=== PATIENT | male | born 1955 | race Caucasian/White ===

== ENCOUNTER 2018-03-08 18:28 | Inpatient (IN) | payer OTHER ==
[~2018-03-08] VITALS: Ht 172.7 cm; Wt 73.8 kg
[2018-03-08 18:28] VITALS: BP 94/48
[~2018-03-08 18:28] MED LIST: AMLODIPINE BESYL5 M1 PO; ASPIRIN81 M2 PO; AUGMENTIN 875875 MG PO; BACLOFEN20 MG PO; CENTRUM SILVER1 EAC2 PO; DIAZEPAM 5 MG5 M1 PO; DIVALPROEX SOD500 M1 PO; GABAPENTIN 100100 MG PO; LIPITOR PO; LIPITOR40 MG PO; LISINOPRIL20 MG PO; NEURONTIN 300M300 M2 PO; OMEPRAZOLE 20 M20 MG PO; POTASSIUM20 PO; VALIUM5 MG PO; VITAMIN D31000 UNI2 PO; ZESTRIL40 MG PO; ZOLOFT100 MG PO; ZYPREXA 5 MG TAB5 M1 PO
[2018-03-08 19:11] LABS: ABSOLUTE NEUTROPHILS 8.2 thou/uL (1.4-8.2); BASOPHILS 0.4 % (0.0-2.0); EOSINOPHILS 3.4 % (0.0-3.0); HEMATOCRIT 44.2 % (42.0-52.0); HEMOGLOBIN 15.2 gm/dL (14.0-18.0); LYMPHOCYTES 14.4 % (24.0-44.0); MCH 30.9 pg (26.0-34.0); MCHC 34.3 g/dL (28.0-37.0); MCV 90.1 fL (80.0-100.0); MONOCYTES 7.7 % (1.0-8.0); PLATELET COUNT 201 thou/uL (150-400); POLYS 74.1 % (36.0-66.0); RBC 4.91 mil/uL (4.50-6.00); RDW 14.5 % (10.5-14.5); WBC 11.1 thou/uL (4.0-11.0)
[2018-03-08 19:15] LABS: CALCIUM 9.7 mg/dL (8.5-10.1); CREATININE 0.8 mg/dL (0.7-1.3); POTASSIUM 3.5 mmol/L (3.5-5.1)
[2018-03-08] MEDS ORDERED: ABILIFY 5 MG TAB5 MG PO (19:42)
[2018-03-08] MEDS ORDERED: OMEPRAZOLE20 MG PO (19:43)
[2018-03-08] MEDS ORDERED: KLOR-CON 1010 MEQ PO (19:44)
[2018-03-08] MEDS ORDERED: TROSPIUM CHLORI20 MG PO (19:44)
[2018-03-08] MEDS ORDERED: NEURONTIN300 MG PO (19:47)
--- NOTE | 2018-03-08 19:54 | NUR ---
PHYSICIAN TO BEDSIDE TO DISCUSS PLAN OF CARE
--- NOTE | 2018-03-08 20:44 | NUR ---
PATIENT TO CT SCAN. URINE HAS BEEN SENT TO LAB AT 1904 AND WILL BE PROCESSED NOW AFTER SPEAKING WITH LAB
[2018-03-08 20:54] LABS: URINE COLOR YELLOW
[2018-03-08 20:55] LABS: URINE BILIRUBIN NEGATIVE (Negative); URINE BLOOD 3+ (Negative); URINE CLARITY CLOUDY; URINE GLUCOSE-RANDOM* NEGATIVE (Negative); URINE KETONES NEGATIVE (Negative); URINE LEUKOCYTES-REFLEX 3+ (Negative); URINE NITRITE-REFLEX POSITIVE (Negative); URINE PROTEIN (DIPSTICK) 1+ (Negative); URINE SPECIFIC GRAVITY 1.015 (1.005-1.035); URINE UROBILINOGEN 0.2 E.U./dl (0.2-1.0)
[2018-03-08 21:03] LABS: CASTS None Seen /LPF (None Seen); CRYSTALS None Seen /LPF (None Seen); SQUAMOUS None Seen /LPF (0-3); URINE RBC 0-2 Rare /HPF (0-2)
--- NOTE | 2018-03-08 21:42 | NUR ---
EDUCATION PROVIDED TO PATIENT REGARDING HOSPITAL ADMISSION. NOTIFIED.
[2018-03-08 21:56] VITALS: BP 126/64
[2018-03-08 22:32] VITALS: BP 128/78
[2018-03-08 22:50] VITALS: BP 126/78
[2018-03-09 04:41] VITALS: BP 113/68
[2018-03-09 05:51] LABS: HEMATOCRIT 42.5 % (42.0-52.0); HEMOGLOBIN 14.4 gm/dL (14.0-18.0); MCH 30.7 pg (26.0-34.0); MCHC 33.9 g/dL (28.0-37.0); MCV 90.6 fL (80.0-100.0); RBC 4.69 mil/uL (4.50-6.00); RDW 14.6 % (10.5-14.5); WBC 7.8 thou/uL (4.0-11.0)
[2018-03-09 06:12] LABS: CALCIUM 8.7 mg/dL (8.5-10.1); CREATININE 0.6 mg/dL (0.7-1.3); POTASSIUM 3.7 mmol/L (3.5-5.1)
--- NOTE | 2018-03-09 06:49 | NUR ---
PT ARRIVED FROM ER VIA CART, PLACED IN ROOM 353. ADMISSION ASSESSMENTS COMPLETED. PT REPORTING MILD PAIN (3/10) AT THE LEFT BUTTOCKS WOUND. ABRASION/BLISTER TYPE WOUND NOTED OVER LEFT HIP. DENIES ANY OTHER COMPLAINTS. REPORTS SUPRAPUBIC CATHETER WAS REPLACED BY HH RN YESTERDAY DUE TO LEAKING. URINE, CLARITZA IN COLOR W/O OBSERVABLE SEDIMENT.
[2018-03-09 07:59] VITALS: BP 122/66
[2018-03-09 08:07] VITALS: BP 122/66
--- NOTE | 2018-03-09 10:37 | NUR ---
Nutrition: assess d/t wound. Pt admitted for worsening wound on right buttock. Hx of paraplegia, HTN, HLD, CAD. Currently on antibiotics, MVI, and zinc. Pt was sleeping during 2 attempted visits. Will trial Jason BID for wound healing. Will need to follow up to assess intake and weight hx. Currently consider low risk.
[2018-03-09 11:54] VITALS: BP 125/65
--- NOTE | 2018-03-09 12:21 | NUR ---
WOUND CONSULT: PT. WAS SEEN TODAY BY DR. COVARRUBIAS AND MYSELF. PT. HAS A DEEP TISSUE INJURY TO HIS LEFT HIP ALONG WITH AN UNSTAGABLE PRESSURE ULCER TO HIS RIGHT BUTTOCK REGION. RECOMMENDATIONS: WOUND CARE TO RIGHT BUTTOCK: GENTLY CLEANSE AREA WITH WOUND CLEANSER OR NORMAL SALINE, PACK WITH DAKIN SOAKED KERLIX, COVER WITH ABD, SECURE WITH TAPE, COMPLETE CARES DAILY AND PRN. TURN Q2 HOURS KEEP PT. OFF WOUNDS MUCH POSSIBLE KEEP ON CHUCK MATRESS. WOUND CARE TO LEFT HIP: GENTLY CLEANSE WITH WOUND CLEANSER OR NORMAL SALINE, COVER WITH OPTIFOAM AG, COMPLETE CARES DAILY AND PRN. TURN Q2 HOURS KEEP ON CHUCK MATRESS KEEP OFF WOUND MUCH POSSIBLE PT. AND STAFF NURSE WERE INSTRUCTED ON PLAN OF CARE.
--- NOTE | 2018-03-09 15:51 | NUR ---
ASSUMED PATIENT CARE AT 0715. A&OX4. COMPLAINTS OF PAIN ON BOTTOM FROM WOUND. WOUND CARE ROUNDED TODAY, SEE ORDERS. GENERAL SURGERY CONSULTED, SEE NOTE. Q2 TURN. WOUND NURSE SPOKE TO SPOUSE VIA TELEPHONE. LOW AIRLOSS PUMP IN PLACE. PRAFO BOOTS IN PLACE. PATIENT AGREEABLE WITH POC.
--- NOTE | 2018-03-09 16:09 | NUR ---
ASSUMED PATIENT CARE AT SHIFT CHANGE. PATIENT VERY RUDE TO THIS NURSE. REFUSING TO BE TURNED. REFUSING TO TAKE MEDICATIONS WITH NURSE IN THE ROOM. THIS NURSE STATED "I HAVE TO SEE YOU TAKE YOUR MEDICATIONS" PATIENT REPLIED "GET THE FUCK OUT." PATIENT EVENTUALLY TOOK MEDS FOR THIS NURSE. WOUND CARE PERFORMED DRESSING CHANGE TODAY. ORDERS CHANGED. SEE ORDERS. HOLDING ELIQUIS. IV THAT WAS PLACED THIS MORNING INFILTRATED. IV TEAM PAGED. PATIENT NOT WORKING TOWARD DISCHARGE GOALS. FREQUENT ROUNDING TO CHECK NEEDS.
[2018-03-09 19:30] VITALS: BP 117/61
[2018-03-10 04:15] VITALS: BP 108/60
--- NOTE | 2018-03-10 04:37 | NUR ---
PT MAKING PROGRESS TOWARDS GOALS. RATING PAIN 2-3/10 OVERNIGHT. MOMENTARY PAIN WITH MOVEMENT DURING TURNS. HAS NOT REQUESTED ANY PAIN MEDICATION OVERNIGHT.
[2018-03-10 05:50] LABS: ABSOLUTE NEUTROPHILS 4.4 thou/uL (1.4-8.2); BASOPHILS 0.4 % (0.0-2.0); EOSINOPHILS 6.1 % (0.0-3.0); HEMATOCRIT 39.4 % (42.0-52.0); HEMOGLOBIN 13.8 gm/dL (14.0-18.0); LYMPHOCYTES 17.1 % (24.0-44.0); MCH 31.6 pg (26.0-34.0); MCV 90.2 fL (80.0-100.0); MONOCYTES 7.9 % (1.0-8.0); PLATELET COUNT 169 thou/uL (150-400); POLYS 68.5 % (36.0-66.0); RBC 4.37 mil/uL (4.50-6.00); WBC 6.4 thou/uL (4.0-11.0)
[2018-03-10 06:07] LABS: CALCIUM 8.7 mg/dL (8.5-10.1); CREATININE 0.6 mg/dL (0.7-1.3); POTASSIUM 3.7 mmol/L (3.5-5.1)
[2018-03-10 08:04] VITALS: BP 153/85
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
--- NOTE | 2018-03-10 12:20 | NUR ---
ASSESSMENT: CM REVIEWED CHART AND MET WITH PATIENT AT THE BEDSIDE. PT WAS ADMITTED WITH OSTEOMYELITIS. PT LIVES AT HOME WITH HIS PIERRE. PT HAS HX OF CERVICAL SPINE INJURY AND IS PARAPLEGIC. PTS HELPS ASSIST PATIENT AND HE HAS GOOD SUPPORT AT HOME. PT HAS NO STEPS TO ENTER THE HOME OR ONCE INSIDE. PT HAS A MOTORIZED SCOOTER, LOW AIR MATTRESS, GRAB BARS, SHOWER BENCH. PT STATES HE HAS A BATH AIDE AND SOMEONE TO COME IN AND HELP [facility]. PATIENT STATES HE HAS BEEN TO A SNF IN THE PAST AND THINKS IT WAS [facility]. PT STATES HE PREFERS NOT TO GO TO A SNF AND IS HOPEFUL HE WILL BE ABLE TO RETURN HOME WITH WITH HH. PT WANTED REFERRAL MADE TO [facility] WHO ALSO HAS AN OSTOMY NURSE. PT IS TO HAVE EXCISIONAL DEBRIDEMENT AND DIVERTING COLOSTOMY LIKELY TUESDAY. CM WILL CONTINUE TO FOLLOW TO ASSIST NEEDED.
--- NOTE | 2018-03-10 15:45 | NUR ---
WOUND FOLLOW UP: PT. WAS SEEN TODAY BY DR. COVARRUBIAS AND MYSELF. PT. WOUNDS ARE STABLE AT THIS TIME. PT. WAS IN GOOD SPIRITS. RECOMMENDATIONS: CONTINUE WITH CURRENT PLAN OF CARE. PT. AND STAFF NURSE WERE INSTRCTED ON PLAN OF CARE.
[2018-03-10 16:01] VITALS: BP 145/65
--- NOTE | 2018-03-10 18:30 | NUR ---
VSS-AFEBRILE. LUNGS CLEAR ROOM AIR. TOLERATED ALL MEALS WITH NO REPORTED N/V. CALLED DR GARCIA TO NOTIFY OF INCREASED PAIN SCORE OF 8/10 TO RIGHT HIP. NEW MEDICATION ORDER TAKEN AND NOTED. PATIENT REPORTS A DECREASE IN PAIN SCORE TO 3/10 AFTER NORCO GIVEN. TURNED EVERY TWO HOURS TO RELIEVE PRESSURE POINTS. CHANGED RIGHT BUTTOCK WOUND, SLOUGH NOTED WELL REDDENED EDGES. DAKINS WET-DRY DRESSING PLACED.
[2018-03-10 20:30] VITALS: BP 150/66
[2018-03-11 05:06] VITALS: BP 129/67
--- NOTE | 2018-03-11 05:58 | NUR ---
PT MAKING SLOW PROGRESS TOWARDS GOALS. RATING PAIN IN HIS RIGHT BUTTOCKS 5/10 THROUGHOUT THE NIGHT. LORTAB GIVBEN PER ORDER AND PT DOES VOICE MILD RELIEF WITH DOSING. HAS DENIED ANY OTHER COMPLAINTS.
[2018-03-11 07:44] VITALS: BP 169/86
[2018-03-11 16:33] VITALS: BP 169/86
--- NOTE | 2018-03-11 18:35 | NUR ---
PT IS PROGRESSING TOWARD POC GOALS. PT TURNED Q2 TOLERATED. DRESSING TO BILATERAL HIPS CHANGED PER WOUND CARE ORDERS AND ARE C/D/I. IVF INFUSING, ALMAZAN TO DD. PT C/O OF RIGHT HIP PAIN AND WAS MEDICATED PER MAR. PT IS RESTING COMFORTABLY IN ROOM, CALL LIGHT WITHIN REACH.
[2018-03-11 19:34] VITALS: BP 175/84
[2018-03-12 00:09] VITALS: BP 166/81
--- NOTE | 2018-03-12 04:13 | NUR ---
Patient making slow progress towards outcome goals. Vital signs stable. Uses call light appropriately for needs. Turned to sides. IVfluids infusing. Fall precautions in place.
[2018-03-12 04:17] VITALS: BP 136/71
[2018-03-12 08:37] VITALS: BP 138/63
--- NOTE | 2018-03-12 15:09 | NUR ---
PT ALERT AND ORIENTED TIMES FOUR, WITH PERIODS OF CONFUSION. VSS, 97%RA, IVF INFUSING ORDER. PT DENIES PAIN/SOA. DRESSING TO RIGHT AND LEFT HIP CHANGED. PT TOLERATES MEDS AND MEALS. PT TURNED FREQUENTLY THIS SHIFT. PT SLOWLY PROGRESSING TOWRADS POC GOALS.
[2018-03-12 16:27] VITALS: BP 164/80
[2018-03-12 19:20] VITALS: BP 146/72
--- NOTE | 2018-03-13 04:00 | NUR ---
Patient making slow progress towards outcome goals. Vital signs stable,Afebrile. IVfluids infusing. Planned surgery on Tuesday. Wound dressings intact. Turned to sides.
[2018-03-13 04:49] VITALS: BP 146/78
[2018-03-13 07:32] VITALS: BP 146/86
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
--- NOTE | 2018-03-13 09:49 | NUR ---
Nutrition: pt seen per followup. Admitted for wound care, stage 1-2 right hip and stage 4 Left ischial with osteomyelitis. On MVI, zinc. Receives Jason BID which pt reports to be drinking. Intake > 75% of meals and familiar with protein sources. Planned Excisional debridement and diverting colostomy today. Reports UBW around 180. Noted weight of 162# but feel error as pt reports no recent change. Re-weighed at 176#. Pt agrees to Ensure max for additional protein. Continue as low risk.
--- NOTE | 2018-03-13 10:44 | NUR ---
TOWARDS POC PT A/O X4, VSS, AFEBRILE. FORGETFULL. DENIES PAIN. WOUND CARE AND DRESSING DONE. SPB CATH CARE DONE. NO CONCERNS VOICED AT THIS TIME WILL CONTINUE TO MONITOR.
--- NOTE | 2018-03-13 14:53 | NUR ---
SW reviewed chart and spoke with nursing and attending physician. Discharge home is anticipated in 1-2 days. SW updated intake at [facility] of anticipated discharge. Plan is for pt to d/c home with [facility] when medically stable. SW is following to assist as needed with discharge planning.
[2018-03-13 16:28] VITALS: BP 134/60
[2018-03-13 19:02] VITALS: BP 163/86
[2018-03-14] VITALS (11 sets, daily range): BP systolic 90–152; BP diastolic 54–79
--- NOTE | 2018-03-14 04:56 | NUR ---
resting quietly. confused and hallucinations tonight. bath completed,npo since midnight. iv fluids continue to infuse. his called [facility] and she is unable toget to the hospital due to lack of a car. careplan reviewed. progressing toward discharge goals.
[2018-03-14 13:55] LABS: HEMATOCRIT 40.6 % (42.0-52.0); HEMOGLOBIN 14.4 gm/dL (14.0-18.0); MCH 30.9 pg (26.0-34.0); MCHC 35.4 g/dL (28.0-37.0); MCV 87.2 fL (80.0-100.0); RBC 4.66 mil/uL (4.50-6.00); RDW 14.4 % (10.5-14.5); WBC 8.6 thou/uL (4.0-11.0)
[2018-03-14 14:07] LABS: CALCIUM 8.7 mg/dL (8.5-10.1); CREATININE 0.5 mg/dL (0.7-1.3)
--- NOTE | 2018-03-14 15:13 | NUR ---
ASSUMED CARE AT 0700. AWAKE AND ALERT TO SELF. VERY AGITATED AND UNABLE TO CLEARLY INDICATE PREFRENCE FOR HIS CARE. WENT DOWN TO SURGERY WITH FOR I&D OF THE R BUTTOCK PI AND POSSIBLE DIVERTING COLOSTOMY. PT WAS KEPT NPO OVERNIGHT AND LEFT FOR SURGERY IN STABLE CONDITION.
[2018-03-15] VITALS: BP 105/68
[2018-03-15 04:30] VITALS: BP 124/57
--- NOTE | 2018-03-15 05:08 | NUR ---
ASSUMED PT CARE AT 1900 WITH BEDSIDE REPORT TAKEN. PT IS LAYING IN BED AND IS ALERT BUT NOT ORIENTED, PT IS CONFUSED. PT IS HALLUCINATING. SPOKE TO PATIENT'S SPOUSE, AND SHE VERBALIZED THAT PATIENT WOULD GET GET CONFUSED UPON RECEIVING CERTAIN ANTIBIOTICS BUT SHE WASNT SURE WHAT ANTIBIOTIC IT WAS. UPON ADMINISTERING SCHEDULED MEDS TO PATIENT, PT WAS CONFUSED AND PUSH DOWN THE IV POLE THEREBY DESTROYING THE DOSE TO VANCOMYOCIN THAT WAS HUNG. PT TOLERATED MEDICATIONS WELL, COLOSTOMY STILL INTACT. SUPRAPUBIC ALMAZAN STILL INTACT. PT IS STABLE. VITAL SIGN STABLE POST I&D OF THE SCARAL DECUBITUS ULCER. DENIES ANY FURTHER NEEDS AT THIS TIME.
[2018-03-15 05:36] LABS: ABSOLUTE NEUTROPHILS 12.7 thou/uL (1.4-8.2); BASOPHILS 0.3 % (0.0-2.0); EOSINOPHILS 0.2 % (0.0-3.0); HEMATOCRIT 38.3 % (42.0-52.0); HEMOGLOBIN 13.1 gm/dL (14.0-18.0); LYMPHOCYTES 10.6 % (24.0-44.0); MCH 30.5 pg (26.0-34.0); MCHC 34.3 g/dL (28.0-37.0); MCV 88.9 fL (80.0-100.0); MONOCYTES 7.6 % (1.0-8.0); PLATELET COUNT 191 thou/uL (150-400); POLYS 81.3 % (36.0-66.0); RBC 4.31 mil/uL (4.50-6.00); RDW 14.3 % (10.5-14.5); WBC 15.6 thou/uL (4.0-11.0)
[2018-03-15 05:49] LABS: CALCIUM 8.5 mg/dL (8.5-10.1); CREATININE 0.7 mg/dL (0.7-1.3); POTASSIUM 3.5 mmol/L (3.5-5.1)
[2018-03-15 08:18] VITALS: BP 82/41
[2018-03-15 12:26] VITALS: BP 130/59
--- NOTE | 2018-03-15 14:39 | NUR ---
VISUAL AND AURAL HALLUCINATIONS. COMBATIVE AT TIMES, MAKING WOUND CARE IMPOSSIBLE. FREQUENT CHECK; WILL CONTINUE T0 MONITOR.
--- NOTE | 2018-03-15 15:33 | NUR ---
ON-GOING ASSESSMENT: CM REVIEWED CHART AND MET WITH PATIENT AT THE BEDSIDE. PT IS VERY CONFUSED. PT/OT HAVE NOT SEEN PATIENT TODAY DUE TO HIS CONFUSION. CM REACHED OUT AND SPOKE WITH PATIENTS PIERRE. PATIENTS REPORTS HE SPOKE WITH THE BEDSIDE RN THIS AM ABOUT PATIENTS CONFUSION AND SHE REPORTS THAT PATIENT HAD THIS HAPPEN BEFORE WHEN HE WAS ON IV ANBX. IS REPORTING SHE IS STILL HOPING PATIENT CAN DISCHARGE HOME WITH HH ([facility]) IS FOLLOWING PATIENT. REPORTS SHE IS REALLY HOPING PATIENT WILL NOT HAVE TO GO TO A SNF AND FEELS HE WILL DO BETTER IN HIS HOME AND THEY ALSO HAVE THE AIDE [facility]. REPORTS IF PATIENT IS TOO MUCH TO HANDLE SHE WILL [facility] AND GET [facility]. CM WILL CONTINUE TO FOLLOW TO ASSIST NEEDED.
[2018-03-15 16:54] VITALS: BP 133/50
[2018-03-15 19:34] VITALS: BP 186/83
--- NOTE | 2018-03-16 02:30 | NUR ---
FOLLOWING POC INFUSING IVPB ANTIBIOTICS. PT FACES CONFUSION. WONDERING IF ITS DELIRIUM OR BROUGHT ON MY THE MEDICATIONS. TRYING TO ORIENT WITH SOME TV AND PUTTING PT GLASSES ON TO REDUCE STRESSORS OF DELIRIUM. PT SOMETIMES POSTURES SO STAYING OFF AT DISTANCE TO AVOID BEING HIT. SO FAR THIS SHIFT THE PT HAS NOT HAD ANY OUTBURST, BUT HAS BEEN KEEPING CONVERSATIONS GOING ALL NIGHT BY HIMSELF. AUDITORY AND VISUAL HALLUCINATIONS BEING SEEN. HOURLY ROUNDING. AND Q2 TURNS.
[2018-03-16 03:24] VITALS: BP 137/65
[2018-03-16 07:36] VITALS: BP 160/66
--- NOTE | 2018-03-16 15:28 | NUR ---
WOUND FOLLOW UP: PT. WAS SEEN TODAY BY DR. COVARRUBIAS AND MYSELF. PT. WOUNDS ARE STABLE AT THIS TIME. DISCUSSED DISCHARGE PLANNING WITH PT. DR. COVARRUBIAS FEELS THAT PT. COULD RETURN HOME WITH HH. RECOMMENDATIONS: CONTINUE WITH CURRENT PLAN OF CARE. PT. AND STAFF NURSE WERE INSTRUCTED ON PLAN OF CARE.
[2018-03-16 16:18] VITALS: BP 155/65
--- NOTE | 2018-03-16 19:04 | NUR ---
ASSUMED PT CARE AT 0700H. PT ALERT AND AWAKE. PT SPEAKING TO SELF. PT PER PREVIOUS SHIFT REPORT HAS BEING CONFUSED IN DELIRIUM STATE. PHYSICIAN ON ROUNDS NOTIFIED. NEW ORDERS RECEIVED AND ACKNOWLEDGED. PT DRS CHANGED C/D/I. PT HAD BM ON TURNS. PT HAS BOOTS ON. PT CONT ON Q2H TURNS. PT CONTINUES TO BE MONITORED FOR SAFETY.
[2018-03-16 20:09] VITALS: BP 156/78
--- NOTE | 2018-03-17 04:49 | NUR ---
ROTATED PT ON Q2 BASIS. CONFUSION LEVEL STILL EVIDENT. GAVE PT PRN DOSE OF HALIDOL WITH NO EFFECT. SPOKE TO BARREL [employer]SEMBLY INSPECTOR CHICHI ABOUT DOSE AND GOT ORDER FOR DIFFERENT DOSE LEVEL. WILL CONTINUE TO ASSESS. FOLLOWING POC WITH IVPB ANTIBIOTICS AND FLUIDS. SPOKE TO PT AND DISCUSSED SITUATION ABOUT THE CONFUSION. SHE STILL CANNOT REMEMBER THE MEDICATION THAT CAUSED THE CONFUSION. ALSO FOLLOWED UP WITH PHARMACY ABOUT VANCO TROUGH AND LAST DRAW WAS ON THE . AGREED TO HAVE IT CHECKED AND IT CAME BACK AT 15. SPOKE WITH PHARMACIST SAID TO FOLLOW POC WITH SAME DOSE. HOURLY ROUNDING.
--- NOTE | 2018-03-17 07:06 | O ---
[facility] [place] [address] OPERATIVE REPORT Name: GEETA RAMON Room #: 353-P ADM IN M.R.#: [id number] Admission: 03/08/18 Attend Phys: Ham Messina DO Discharge: Date of : 51 Report #: [id number] THIS REPORT FOR: //name// CC: RHIANNON physician/PCP Ham Messina DO DATE OF SERVICE: 03/14/2018 SURGEON: Richard Harrison MD INTERNATIONAL ACCOUNT EXECUTIVE: WYATT Busby PREOPERATIVE DIAGNOSES: 1. Unstageable right ischial tuberosity decubitus ulcer. 2. Paraplegia. 3. Hypertension. POSTOPERATIVE DIAGNOSES: 1. Stage 4 right ischial tuberosity decubitus ulcer. 2. Paraplegia. 3. Hypertension. PROCEDURE: 1. Diverting loop transverse colostomy. 2. Partial omentectomy. 3. Excisional and ultrasonic debridement of stage 4 right ischial tuberosity decubitus ulcer including skin, subcutaneous tissue, muscle, and bone (initial measurement 10 cm2; ending measurement 45 cm2). ANESTHESIA: General endotracheal anesthesia and local anesthetic. ESTIMATED LOSS: 25 mL. SPECIMEN: Right ischial tuberosity soft tissue and bone. COMPLICATIONS: None appreciated. INDICATIONS FOR PROCEDURE: This is a 62-year-old paraplegic male patient who suffered a surgical spine injury. He was seen in the [facility] for a right ischial tuberosity wound. He has had difficulty with right buttock pain and increased drainage from the wound. He is uncertain how long the wound has been present. He has a suprapubic catheter in place currently, but his wound is felt to have initially developed from sitting in urine. The patient now has an unstageable right ischial tuberosity decubitus ulcer. He underwent a CT of the pelvis, showing a pocket of fluid extending from the wound down to the lower posterior corner with suggestion of early cortical bone erosion (probable [facility] [address] [place] [address] OPERATIVE REPORT Name: GEETA RAMON Room #: 353-P ADM IN ..#: [id number] Admission: 03/08/18 Attend Phys: Ham Messina DO Discharge: Date of : 51 Report #: [id number] osteomyelitis). The patient presents today for excisional and ultrasonic debridement as well as a diverting colostomy to optimize the healing environment. OPERATIVE FINDINGS: The initial wound measurements were 5 cm long x 2 cm wide with an ending measurement of 9 cm long x 5 cm wide. There was some involvement of the outer table of the bone; however, the marrow appeared to be unaffected with inflammatory change. The marrow itself was without pus or significant drainage. Debridement was carried down to healthy, bleeding tissue. The transverse colon was able to be identified only after excising a portion of the omentum. After doing so, I was able to identify and deliver the colon through the circular incision and create a loop transverse colostomy that was palpably patent after being fully matured. At the conclusion of the operation, sponge, needle, and instrument counts were correct. DESCRIPTION OF PROCEDURE IN DETAIL: After the risks, benefits, and expectations of the operation were discussed in detail with the patient, informed consent was obtained. The patient was identified in the preoperative holding area. He has been receiving scheduled IV antibiotics. He was taken to the operating room and he was placed in the supine position. He was then given IV sedation and he was intubated without incident. He was placed in the prone position on operating room table. His buttocks were prepped and draped in standard sterile fashion. A time-out was performed to identify the correct patient and procedure. Local anesthetic was infiltrated into the skin and subcutaneous tissue in the area of the planned incision where undermining was present. The wound opening had been measured initially. A sharp #10 blade scalpel was then used to make an incision through the skin and subcutaneous tissue. Electrocautery was used to dissect through the subcutaneous tissue down to the larger cavity where undermining was present. Bleeding points were made hemostatic with electrocautery. Debridement of the soft tissue was carried down to healthy, bleeding tissue. The ischial tuberosity was identified and a rongeur was used to remove the outer table of the bone. The marrow was then swabbed for aerobes, anaerobes and fungus. The outer table of bone was then filed down with a rasp. The wound was irrigated and bleeding points were made hemostatic. The [facility] ultrasonic debridement device was used to mechanically debride the entire surface area of the wound. All bleeding points were again cauterized for hemostasis. After ensuring adequate hemostasis, the wound was packed with normal saline on Kerlix. An ABD pad and tape were then applied. The patient was returned to the supine position. The patient's abdomen was prepped and draped in a standard sterile fashion. A sharp #10 blade scalpel was used to make a circular incision in the right upper abdomen. The size of the opening was approximately the size of a half dollar. [address] [address] OPERATIVE REPORT Name: GEETA RAMON Room #: 353-P [facility] IN Luis Manuel.#: [id number] Admission: 03/08/18 Attend Phys: Hamchristelle Peacerell, DO Discharge: Date of : 51 Report #: [id number] Electrocautery was used to dissect through the subcutaneous tissue down to the right anterior rectus sheath. The sheath was opened with a cruciate incision with electrocautery. The underlying rectus abdominis muscle was split longitudinally. The posterior rectus sheath fascia was then opened with electrocautery and a 2-finger stretch was performed. Omentum was seen in this area. The omentum was delivered through the incision as the colon was not immediately visible. The omentum was then split with the [employer] energy device with good hemostasis. The colon was difficult to identify. The excess omentum was excised. Ultimately, I was able to identify the transverse colon. It was delivered through the incision. A window was made through the mesocolon to assure that enough colon had been delivered through the circular incision. The antimesenteric colon was then opened longitudinally with electrocautery. The Brionna-type interrupted 3-0 Vicryl sutures were placed at the 12, 3, 6, and 9 o'clock positions. Short runs of 3-0 Vicryl were then used to completely mature the stoma in a double barrel fashion. Each limb of the colostomy was palpably patent beyond the fascial level. The skin was cleansed and a 2-piece stoma appliance was placed. The patient tolerated the procedure well. He was awakened, extubated, and taken to recovery room in stable condition with no apparent intraoperative complications. <ELECTRONICALLY SIGNED> By: Richard Harrison MD, FACS 03/17/18 0706 [id number] Richard Harrison MD, PAOLA /nt
[2018-03-17 07:52] VITALS: BP 135/65
[2018-03-17 12:12] VITALS: BP 216/59
[2018-03-17 12:24] VITALS: BP 126/59
--- NOTE | 2018-03-17 13:08 | PATH ---
[facility] [address] [place] [address] PATHOLOGY RPT PROCEDURE Name: LAZ RAMON Room #: 353-P ADM IN M.R.#: [id number] Admission: 03/08/18 Date of : 51 Discharge: Report #: [id number] Path Case #: [id number] [facility] Accession Number: [id number] . 01 Material submitted: . PART A: RIGHT ISCHIAL TUBEROSITY WOUND PART B: RIGHT ISCHIAL TUBEROSITY BONE . 01 Clinical history: . Sacral wound . 02 Diagnosis: A. Right ischial tuberosity wound, incision and drainage: - Ulceration associated with fibrinoid degeneration and marked acute inflammation extending into underlying subcutaneous tissue, consistent with wound. - Squamous epithelium showing pseudo-epitheliomatous changes. . B. Bone, right ischial tuberosity bone, incision and drainage: - Fragments of bone associated with acute and chronic inflammation as well as osteonecrosis, compatible with wound tissue. (IUV:huber; 03/16/2018) QMS/03/16/2018 . 02 Electronically signed: . Louise Branch MD, Pathologist NPI- [id number] . 01 Gross description: . A. Received in formalin labeled "Laz Ramon, right ischial tuberosity wound," are two segments of yellow-mancini soft tissue measuring 3.7 x 3.4 x 1.7 cm and 5.4 x 2.9 x 2.4 cm in greatest dimensions. The larger segment displays attached wrinkled, white-mancini skin. Serial sectioning reveals firm, pale yellow-mancini cut surfaces. Both segments are submitted representatively in cassette A1. . B. Received in formalin labeled "Laz Ramon, right ischial tuberosity bone," are multiple fragments of partially granular, franks-mancini bone and soft tissue measuring 1.4 x 1.1 x 0.5 cm in aggregate dimensions. The specimen is submitted entirely in cassette B1, following decalcification. (DAC; 03/15/2018) XDC/XDC . 02 Pathologist provided ICD-10: M87.851, L98.499, L08.9 . [address] [place] [address] PATHOLOGY RPT PROCEDURE Name: LAZ RAMON Room #: 353-P ADM IN M.R.#: [id number] Admission: 03/08/18 Date of : 51 Discharge: Report #: [id number] Path Case #: [id number] CPT . [id number], [id number], [id number] Specimen Comment: A courtesy copy of this report has been sent to Specimen Comment: [phone], . Specimen Comment: Report sent to / DR GARCIA Specimen Comment: A duplicate report has been generated due to demographic updates. Performed at: [address] [facility], [place] [id number] MD Darryl Chawla MD Phone: [phone] Performed at: [address] [facility] [id number] MD Louise Branch MD Phone: [phone]
[2018-03-17 13:32] VITALS: BP 216/59
--- NOTE | 2018-03-17 13:39 | NUR ---
ON-GOING ASSESSMENT: CM REVIEWED CHART AND MET WITH PATIENT AT THE BEDSIDE. PT IS MORE CLEAR TODAY. CM SPOKE WITH PATIENTS PIERRE WHO REPORTS SHE IS STILL WANTING PATIENT TO COME BACK HOME AT DISCHARGE WITH HH ([facility]). CM NOTIFIED [facility] THAT PATIENT WILL LIKELY DISCHARGE THIS WEEKEND. PATIENT ALSO HAS AN AIDE THAT COMES 12 HRS/WEEK. PT/OT SAW PATIENT AND FEEL HE IS ABLE TO RETURN HOME AND IS BACK TO BASELINE. HAS A ROXANNE LIFT FOR PATIENT AT HOME AND MANAGES WELL WITH HIM. PT IS PARAPLEGIC AND WILL NEED TRANSPORTATION HOME VIA [facility] [facility]. IF PATIENT IS MEDICALLY STABLE FOR DISCHARGE OVER THE WEEKENED CONTACT [facility]:[phone] TO ARRANGE AND BILL TO [facility]. (CM APPROVED THROUGH CM DIRECTOR). ADDRESS FOR PATIENTS HOME IS [address] [place] [phone]. PATIENTS WANTS TO BE CONTACTED WHEN PATIENTS IS COMING HOME AT [phone]. CONTACT [facility] WHEN PATIENTS IS DISCHARGING AT [phone] AND FAX DISCHARGE ORDERS TO [facility] FAX:[phone].
[2018-03-17 16:42] VITALS: BP 153/65
[2018-03-17 20:02] VITALS: BP 139/62
--- NOTE | 2018-03-17 20:33 | NUR ---
ASSUMED PT CARE AT 0700H. PT AT THE TIME SLEEPING. PT PER PREVIOUS REPORT WAS DISORIENTED. TODAY PT IS A&O X4. PT IS ABLE TO HAVE ONE ON ONE CONVERSATION. PT COULD COMMUNICATE NEEDS AND PLAN. PT IS ABLE TO PARTICIPATE WITH CARE. PT ABLE TO VERBALIZE HISTORY OF CARE AT HOME PT PARTICIPATES WITH OCCUPATIONAL THERAPY. PT ABLE TO FEED SELF WITH LEFT HAND. PT RIGHT HAND STILL CONTRACTED AND HAS IV IN PLACE RUNNING FLUIDS. PT PARAPLEDGIC ON AIR LOSS BED, ON PRAFO BOOTS AND SCDS. PT STATES PAIN ON BUTTOCKS AND SHOULDER OF 7-8/10. PRN MED GIVEN. PT TOLERATES MEDS AND MEALS. PT CURRENTLY TOLERATES PAIN. PT L HIP AND BUTTOCK DRG C/D/I. PT SUPRA CATH INPLACE. PT COLOSTOMY INPLACE. PT CURRENTLY ON ISOLATION AND CONTINUES TO BE MONITORED Q2H TURNS FOR SAFETY.
--- NOTE | 2018-03-17 20:57 | NUR ---
ASSUMED PT CARE AT 0700H. PT AT THE TIME SLEEPING. PT PER PREVIOUS REPORT WAS DISORIENTED. TODAY PT IS A&O X4. PT IS ABLE TO HAVE ONE ON ONE CONVERSATION. PT COULD COMMUNICATE NEEDS AND PLAN. PT IS ABLE TO PARTICIPATE WITH CARE. PT ABLE TO VERBALIZE HISTORY OF CARE AT HOME PT PARTICIPATES WITH OCCUPATIONAL THERAPY. PT ABLE TO FEED SELF WITH LEFT HAND. PT RIGHT HAND STILL CONTRACTED AND HAS IV IN PLACE RUNNING FLUIDS. PT PARAPLEDGIC ON AIR LOSS BED, ON PRAFO BOOTS AND SCDS. PT STATES PAIN ON BUTTOCKS AND SHOULDER OF 7-8/10. PRN MED GIVEN. PT TOLERATES MEDS AND MEALS. PT CURRENTLY TOLERATES PAIN. PT VITAL WNL BP 139/62, TEMP 37.3, PULSE 97, RESP 17, AND SAT 97%. ERROR IN INPUT DONE ON BP 216/59 BY OTHER STAFF, PHYSICIAN NOTIFIED OF ERROR. PT L HIP AND BUTTOCK DRG C/D/I. PT SUPRA CATH INPLACE. PT COLOSTOMY INPLACE. PT CURRENTLY ON ISOLATION AND CONTINUES TO BE MONITORED Q2H TURNS FOR SAFETY.
[2018-03-18 05:47] LABS: HEMATOCRIT 33.2 % (42.0-52.0); HEMOGLOBIN 11.6 gm/dL (14.0-18.0); MCH 31.2 pg (26.0-34.0); MCHC 34.8 g/dL (28.0-37.0); MCV 89.5 fL (80.0-100.0); RBC 3.71 mil/uL (4.50-6.00); RDW 14.6 % (10.5-14.5); WBC 7.7 thou/uL (4.0-11.0)
[2018-03-18 05:55] LABS: CALCIUM 8.1 mg/dL (8.5-10.1); CREATININE 0.5 mg/dL (0.7-1.3)
[2018-03-18 05:59] LABS: POTASSIUM 2.7 mmol/L (3.5-5.1)
--- NOTE | 2018-03-18 07:55 | NUR ---
ASSUMED CARE AT 1900, ASSESSMENT COMPLETED. PT DENIED SOB OR NAUSEA, C/O HEADACHE, GIVEN TYLENOL TWICE OVERNIGHT. PT DROWSY BUT EASILY AROUSEABLE, PLEASANT AND COOPERATIVE WITH CARES, A&Ox3 WITH SLIGHT FORGETFULLNESS. SUPRAPUBIC ALMAZAN DRAINING LARGE AMOUNT OF DARK YELLOW URINE. COLOSTOMY HAD LARGE AMOUNT OF GAS BUT ONLY ABOUT 50 ML OF LIQUID STOOL OUTPUT; HAD MEDIUM-LARGE AMOUNT OF PASTY-LIQUID STOOL FROM THE RECTUM, REQUIRING AN OVERNIGHT DRESSING CHANGE TO RIGHT BUTTOCK WOUND. Q2 TURNS WELL AT PT REQUEST, PRAFO BOOTS IN PLACE, ADJUSTED SCD'S TO PROPERLY POSITION TUBES THROUGH THE HOLES. RESULTED CRITICAL LOW POTASSIUM 2.7 THIS AM, OBTAINED ORDERS TO START ON ELECTROLYTE PROTOCOL, GAVE ONE DOSE PO MAG AND STARTED ON FIRST BAG OF IV POTASSIUM. NO OTHER CONCERNS, SHIFT REPORT GIVEN AT 0700.
[2018-03-18 08:52] VITALS: BP 132/59
--- NOTE | 2018-03-18 12:38 | NUR ---
ASSUMED PATIENT CARE AT 0715. A&OX4. COMPLAINTS OF PAIN ON BOTTOM. REPOSITIONING HELPS WITH PAIN. Q2 TURN. DRESSING CHANGES PER ORDERS. ANTIBIOTICS CHANGED PER INFECTIOUS DISEASE THIS MORNING. PLAN IS TO KEEP PATIENT OVER THE WEEKEND ON IV ANTIBIOTICS. MOST LIKELY NEED CUSTODIAL IV ANTIBIOTIC THERAPY. AT DISCHARGE, PATIENT AND SPOUSE ARE WANTING PATINET TO GO HOME WITH HOME HEALTH. SPOUSE CARES FOR PATIENT. ABLE TO MAKE NEEDS KNOWN. HOURLY ROUNDING TO CHECK NEEDS.
[2018-03-18 16:37] VITALS: BP 151/76
[2018-03-18 20:00] VITALS: BP 185/82
--- NOTE | 2018-03-19 00:46 | NUR ---
ASSUMED CARE OF PT AT 1900. A&Ox3, COOPERATIVE. VS STABLE. C/O PAIN, REPOSITION AND MEDS GIVEN WITH MODERATE RELIEF. SPOKE TO OVER THE PHONE, GAVE UPDATE AND REPORTED CURRENT STATUS. CURRENTLY RESTING. MEDS GIVEN ORDERED. REPOSITIONED Q2 HOURS. NO BM, HAS HAD 20ML OUT OF COLOSTOMY. PROGRESSING WELL TOWARDS POC GOALS.
[2018-03-19 04:38] VITALS: BP 129/69
[2018-03-19 05:41] LABS: HEMATOCRIT 33.2 % (42.0-52.0); HEMOGLOBIN 11.3 gm/dL (14.0-18.0); MCH 30.3 pg (26.0-34.0); MCV 89.1 fL (80.0-100.0); RBC 3.72 mil/uL (4.50-6.00); RDW 14.9 % (10.5-14.5); WBC 7.3 thou/uL (4.0-11.0)
[2018-03-19 05:55] LABS: CREATININE 0.6 mg/dL (0.7-1.3); TOTAL BILIRUBIN 0.5 mg/dL (<0.1-1.0)
[2018-03-19 05:58] LABS: POTASSIUM 2.9 mmol/L (3.5-5.1)
[2018-03-19 08:19] VITALS: BP 168/83
[2018-03-19 11:46] VITALS: BP 152/83
--- NOTE | 2018-03-19 13:19 | NUR ---
care of pt assumed this am @ ~0700. pt noted to be drowsy w/ sleep interrupted till about 1100. pt denied co pain this am, but did request pain medication for co pain to buttock late morning. pt aox4 this am. pt request to be set up for his meals as he states he only has good use of his left ue, as his rt ue is contractured. pt w/ a good appetite for food and fluid today. pt receiving potassium replacement (po and iv) tx today. pt denies soa and no n/v/d. pt noted to be incontintent of stool (rectum) this am. pt w/ a functional colostomy w/ a healthy, bright red stoma, bag intact w/ + flatus.
[2018-03-19 17:25] VITALS: BP 177/86
[2018-03-19 20:35] VITALS: BP 174/85
[2018-03-20 01:34] LABS: HEMATOCRIT 35.9 % (42.0-52.0); HEMOGLOBIN 12.3 gm/dL (14.0-18.0); MCH 30.5 pg (26.0-34.0); MCHC 34.2 g/dL (28.0-37.0); MCV 89.2 fL (80.0-100.0); RBC 4.02 mil/uL (4.50-6.00); RDW 14.5 % (10.5-14.5)
[2018-03-20 01:47] LABS: ALBUMIN 2.1 g/dL (3.4-5.0); CALCIUM 8.4 mg/dL (8.5-10.1); CREATININE 0.6 mg/dL (0.7-1.3); POTASSIUM 3.6 mmol/L (3.5-5.1); TOTAL BILIRUBIN 0.7 mg/dL (<0.1-1.0); TOTAL PROTEIN 6.4 g/dL (6.4-8.2)
--- NOTE | 2018-03-20 02:04 | NUR ---
ASSUMED CARE OF PT AT 1900. A&Ox4, COOPERATIVE. VS STABLE. C/O PAIN IN BUTTOCKS AND HEAD, TYLENOL GIVEN AND REPOSITIONED W/ PARTIAL RELIEF. COLOSTOMY AND SUPRAPUBIC CATH PATENT. NO ACUTE DISTRESS. SAME PREVIOUS NIGHT. PROGRESSING TOWARDS POC GOALS.
[2018-03-20 06:02] VITALS: BP 128/74
[2018-03-20 07:52] VITALS: BP 138/83
[2018-03-20] MEDS ORDERED: HYDROCODONE-AP1 EAC6 PO (12:29)
[2018-03-20] MEDS ORDERED: LEVAQUIN 500 M500 M3 PO (12:29)
[2018-03-20] MEDS ORDERED: DOXYCYCLINE HYC50 MG PO (12:29)
[2018-03-20] MEDS ORDERED: FLAGYL 250 MG250 MG PO (12:29)
[2018-03-20 13:47] VITALS: BP 216/59
--- NOTE | 2018-03-20 16:07 | NUR ---
on-going assessment: CM REVIEWED CHART AND MET WITH PATIENT AT THE BEDSIDE. PT HAS ORDERS TO DISCHARGE HOME WITH HH ([facility]). [facility] WAS NOTIFIED AND NURSE IS TO COME OUT TO PATIENTS HOME TOMORROW AND WILL FURTHER DISCUSS OSTOMY CARE. BEDSIDE RN ALSO REQUESTED TO EDUCATE ON PHONE PRIOR TO DISCHARGE. CM SPOKE WITH PATIENTS WHO REPORTS SHE DOES NOT GET A CHECK UNTIL NEXT WEEK AND IS CONCERNED ABOUT PAYING FOR MEDICATION. CM VERFIED WITH DIRECTOR AND COST FOR MEDICATION IS COVERED BY COSTING 44.35. CM PICKED UP MEDICATION FROM OUTPATIENT PHARMACY AND PROVIDED TO BEDSIDE RN. CM DISCUSSED WITH PATIENTS THAT [facility] ONLY FILLED 5 DAYS AND THE REST WILL BE HERE TOMORROW. CM ALSO SPOKE WITH AND PATIENT IS NEEDING TRANSPORTATION HOME DUE TO BEING PARAPLEGIC/ROXANNE LIFT. CM CONTACTED [facility] AND ARRANGED TRANSPORTATION AND ARRIVAL TIME IS AROUND 1715. CM NOTIFIED BEDSIDE RN AND . [facility] FORM IS ON THE FRONT OF CHART. AND PT REPORT NO FURTHER QUESTIONS FROM CM.
[2018-03-20 17:25] VITALS: BP 180/80
[2018-03-20 17:56] VITALS: BP 216/59
[2018-03-20 20:02] VITALS: BP 216/59
--- NOTE | 2018-03-20 20:03 | NUR ---
care of pt assumed this am @ ~0700. pt noted to be a help in turning from side to side today for position changes and linen change. pt w/ full use of his lue to groom, feed himself and control bed/tv. pt's rue contractured. pt w/ no movement of his ble. iv team needed for an iv start this am. pt w/ a good appetite for food and fluid, once meal tray set up for him. pt co of generalized pain today requesting tylenol and hydrocodone today w/ relief. informed of pt's dc today, early this afternoon by cm/sw via [facility] w/ stretcher. call placed to to inform her of time of dc, wound care, colostomy care and new medication pt to receive. pt to receive home health care in the am and the learning disabled teacher/Ashlyn to visit in am. pt happy to be going home today, requested his have Coke, Cheetos and Cigarettes ready for him when he arrives.
== END 2018-03-20 18:40 | disposition home health service (06) | DRG 515 ==
LOC: ER 18:28 → 3W 21:39 → EROBS 21:39 → 3W 22:38
PROVIDERS: Anesthesiology; Hospitalist; Internal Medicine; Nurse Practitioner Family; Student in an Organized Health Care Education/Training Program; Surgery; ADMIT Internal Medicine Geriatric Medicine
DX: M46.28 Osteomyelitis of vertebra, sacral and sacrococcygeal region (principal); L89.314 Pressure ulcer of right buttock, stage 4; T83.511A Infection and inflammatory reaction due to indwelling urethral catheter, initial encounter; G82.20 Paraplegia, unspecified; E46 Unspecified protein-calorie malnutrition; L89.222 Pressure ulcer of left hip, stage 2; I10 Essential (primary) hypertension; E78.00 Pure hypercholesterolemia, unspecified; K21.9 Gastro-esophageal reflux disease without esophagitis; Y83.8 Other surgical procedures as the cause of abnormal reaction of the patient, or of later complication, without mention of misadventure at the time of the procedure; I25.10 Atherosclerotic heart disease of native coronary artery without angina pectoris; F17.210 Nicotine dependence, cigarettes, uncomplicated; F32.9 Major depressive disorder, single episode, unspecified; M50.20 Other cervical disc displacement, unspecified cervical region; S14.109A Unspecified injury at unspecified level of cervical spinal cord, initial encounter; E66.9 Obesity, unspecified; R41.0 Disorientation, unspecified; E87.6 Hypokalemia; X58.XXXA Exposure to other specified factors, initial encounter; E83.42 Hypomagnesemia; B96.5 Pseudomonas (aeruginosa) (mallei) (pseudomallei) as the cause of diseases classified elsewhere; Z95.1 Presence of aortocoronary bypass graft; Z95.820 Peripheral vascular angioplasty status with implants and grafts; Z87.81 Personal history of (healed) traumatic fracture; Y92.89 Other specified places as the place of occurrence of the external cause; Z68.24 Body mass index [BMI] 24.0-24.9, adult; Z79.82 Long term (current) use of aspirin; Z79.899 Other long term (current) drug therapy; Z28.21 Immunization not carried out because of patient refusal; Y93.89 Activity, other specified; Y99.8 Other external cause status
CPT/HCPCS: 10080; 50010; 50093; 50101; 50386; 50403; 56524; 57119; 57120; 62110; 62900; 70005